=== PATIENT | male | born 1990 | race African-American/Black ===

== ENCOUNTER 2018-10-05 00:42 | Emergency (ER) | payer SELFPAY ==
[~2018-10-05] VITALS: Ht 172.7 cm; Wt 92.1 kg
[2018-10-05 01:02] VITALS: BP 128/73
[2018-10-05] MEDS ORDERED: CIPROFLOXACIN HCL 500 MG TABLET ONE (01:31)
[2018-10-05] MEDS ORDERED: CIPROFLOXACIN HCL 250 MG TABLET PO ONE (02:00)
== END 2018-10-05 01:45 | disposition home or self-care (01) ==
LOC: ER 00:44
DX: Z20.811 Contact with and (suspected) exposure to meningococcus (principal); Z60.2 Problems related to living alone